=== PATIENT | female | born 1970 | race Caucasian/White ===

== ENCOUNTER 2019-01-02 21:22 | Emergency (ER) | payer MEDICAID ==
[~2019-01-02] VITALS: Ht 162.6 cm; Wt 71.3 kg
[2019-01-02] MEDS ORDERED: KETOROLAC 30MG/ML VIAL IV STA (22:59)
[2019-01-02] MEDS ORDERED: ONDANSETRON HCL 4MG/2ML INJ IV STA (22:59)
[2019-01-02] MEDS ORDERED: SODIUM CHLORIDE 0.9% 1,000 ML IV ONE (22:59)
[2019-01-02 23:46] LABS: BASOPHILS % 0.7 % (0.0-2.0); HEMATOCRIT. 37.4 % (36.0-48.0); HEMOGLOBIN. 12.6 g/dL (12.0-16.0); LYMPHOCYTES % 41.1 % (20.0-50.0); MEAN CORPUSCULAR HEMOGLOBIN 29.5 pg (28.0-32.0); MEAN CORPUSCULAR VOLUME 87.6 fL (81.0-99.0); MEAN PLATELET VOLUME 8.6 fl (7.4-10.4); NEUTROPHILS % 48.2 % (40.0-76.0); PLATELET 247 x1000/uL (130-400); RED BLOOD CELL COUNT 4.27 mill/uL (4.2-5.4); RED CELL DISTRIBUTION WIDTH 13.5 % (11.6-14.6)
[2019-01-02 23:54] LABS: CHLORIDE 108 mEq/L (98-107)
[2019-01-02 23:58] LABS: ETHANOL BLOOD < 10 mg/dL
[2019-01-03 00:02] LABS: HCG SCREEN NEGATIVE
[2019-01-03 00:03] LABS: CREATINE KINASE 92 IU/L (26-192)
[2019-01-03 00:05] LABS: CREATINE KINASE MB FRACTION < 1.0 ng/mL (0.5-3.6)
[2019-01-03 00:13] LABS: *AMPHETAMINES SCREEN URINE NEGATIVE (NEGATIVE); *BARBITURATES SCREEN URINE NEGATIVE (NEGATIVE); *BENZODIAZEPINES SCREEN URINE NEGATIVE (NEGATIVE)
[2019-01-03 00:14] LABS: *COCAINE SCREEN URINE NEGATIVE (NEGATIVE); CANNABINOID URINE SCREEN NEGATIVE (NEGATIVE); METHADONE URINE SCREEN NEGATIVE (NEGATIVE); OPIATES URINE SCREEN NEGATIVE (NEGATIVE); PHENCYCLIDINE URINE SCREEN NEGATIVE (NEGATIVE)
[2019-01-03 02:00] VITALS: BP 121/74
== END 2019-01-03 02:36 | disposition home or self-care (01) ==
LOC: ER 21:29
DX: R51 Headache (principal); J40 Bronchitis, not specified as acute or chronic; M79.601 Pain in right arm; R20.0 Anesthesia of skin; H53.8 Other visual disturbances
CPT/HCPCS: 36415; 70450; 71045; 80053; 80305; 80320; 82550; 82553; 83690; 84443; 84484; 84703; 85025; 85651; 93005; 96374; 96375; 99284; J1885; J2405; J7030; Z7610; G0480